=== PATIENT | female | born 1960 | race Two or more races ===

== ENCOUNTER → 2022-04-26 12:38 | Outpatient (CLI) | payer MEDICARE, MEDICAID, SELFPAY ==
--- NOTE | 2022-04-26 12:42 | US_ITS ---
FINAL REPORT CLINICAL HISTORY: post menopausal bleeding FINDINGS: Transvaginal sonographic images of the pelvis were obtained. The uterus measures 7.3 x 3.8 x 3.2 cm. The endometrium measures 14 mm, which is abnormally thickened. There is a small amount of endometrial fluid. There is a partially calcified uterine mass consistent with a fibroid measuring up to 1.5 cm. The right ovary measures 1.9 cm in length and left ovary measures 2.6 cm in length. Normal blood flow seen to the ovaries. Small follicles are present. There is no evidence of free fluid. IMPRESSION: Abnormal endometrial thickening could represent hyperplasia versus neoplasm. Small amount of endometrial fluid. Uterine fibroid. Reviewed, Interpreted and Dictated by Luis Eduardo Ba III, MD Transcribed by Duong Levine Authenticated and [facility]
== END ==
PROVIDERS: PCP Obstetrics & Gynecology; Visit Provider Obstetrics & Gynecology
DX: N95.0 Postmenopausal bleeding (principal)
CPT/HCPCS: 76830

== ENCOUNTER → 2022-07-03 10:13 | Outpatient (CLI) | payer MEDICARE, MEDICAID, SELFPAY ==
[2022-07-03 12:04] LABS: Basophils # 0.1 K/mm3 (0-0.2); Basophils % 2.1 % (0.1-2.0); Eosinophils # 0.2 K/mm3 (0.0-0.4); Eosinophils % 3.3 % (0.1-12.0); Hematocrit 37.1 % (37.0-47.0); Hemoglobin 12.3 g/dL (12.2-16.2); Lymphocytes # 2.8 K/mm3 (0.7-4.5); Lymphocytes % 50.5 % (10-50); Mean Corpuscular Hemoglobin 29.3 pg (27.0-31.2); Mean Corpuscular Volume 88.9 fl (81-99); Mean Platelet Volume 7.5 fl (7.4-10.4); Monocytes # 0.3 K/mm3 (0.1-1.0); Monocytes % 5.1 % (1.7-9.3); Neutrophils # 2.2 K/mm3 (1.8-7.8); Neutrophils % 39.1 % (37.0-80.0); Platelet Count 347 K/mm3 (142-424); Red Blood Count 4.18 M/mm3 (4.20-5.40); Red Cell Distribution Width 13.5 % (11.5-17.5); White Blood Count 5.6 K/mm3 (4.8-10.8)
[2022-07-03 12:07] LABS: MANUAL DIFFERENTIAL MANUAL DIFFERENTIAL (MANUAL DIFF)
[2022-07-03 12:36] LABS: Alanine Aminotransferase 40 U/L (12-78); Albumin Level 4.2 g/dl (3.5-5.0); Albumin/Globulin Ratio 1.5 (1.1-1.8); Alkaline Phosphatase 123 U/L (38-126); Anion Gap 9.9 mEq/L (5-15); Aspartate Amino Transferase 47 U/L (14-36); Bilirubin,Total 0.3 mg/dl (0.2-1.3); Blood Urea Nitrogen 15 mg/dl (7-17); Calcium 9.1 mg/dl (8.4-10.2); Carbon Dioxide 28 mmol/L (22.0-30.0); Chloride 105 mmol/L (98-107); Estimated Glomerular Filt Rate 63 ml/min (>60); GFR (African American) 77 ML/MIN (>60); Globulin 2.8 g/dL (1.3-3.2); Glucose 120 mg/dl (74-100); Potassium 3.9 mmoL/L (3.5-5.1); Sodium 139 mmol/L (136-145)
[2022-07-03 16:57] LABS: Eosinophils % 7 % (0-3); Lymphocytes % 55 % (10-50); Monocytes % 3 % (2-9); Neutrophils % 33 % (42-76); Platelet Estimate Normal; RBC Morphology Normal; Total Cells Counted 100
== END ==
PROVIDERS: Visit Provider Obstetrics & Gynecology
DX: N95.0 Postmenopausal bleeding (principal)
CPT/HCPCS: 36415; 80053; 85007; 85025

== ENCOUNTER 2022-07-06 06:19 | Day surgery (SDC) | payer MEDICARE, MEDICAID, SELFPAY ==
[2022-07-04 13:53] VITALS: BMI 24.5
[2022-07-06] VITALS (7 sets, daily range): BP systolic 69–167; BP diastolic 39–83; PULSE 77–85; RESP 15–18; TEMP 36.3–43; O2SAT 93–98; BMI 25.4
--- NOTE | 2022-07-06 07:20 | EXP.ANES.CKL ---
[facility] Disclaimer: The information contained in this section may have been updated after the patient was seen, as this information can be updated by other users. Medical History Carpal tunnel syndrome, bilateral Depression Fibromyalgia History of COVID-19 History of gastroesophageal reflux (GERD) Hypertension Post-menopausal bleeding Stress incontinence in female Thickened endometrium Surgical History History of back surgery History of carpal tunnel surgery Hx of shoulder surgery Family History Other Diabetes Hypertension Social History Smoking Status: Never smoker alcohol intake: never substance use type: denies use current occupational status: unemployed Travel in the last 8 weeks: None [facility] Anesthesia Checklist Patient Identification Patient Identification: Arm Band and Verbal (Name & ) Structural Data Admitted From: Home Planned Operative Procedure/s: Hyst/D & C Consent for Planned Operative Procedure(s) Verified: Yes NPO Status Verified Time NPO: 00:00 Chart Verification Results Verified: CBC and BMP Airway Assessment C-Spine Mobility Assessed: Yes TMJ Mobility Assessed: Yes Dentition: Good Dentition Neurological Assessment Level of Consciousness: Awake Hx Seizures: No Numbness or tingling in extremities: No Anesthesia Plan Anesthesia Risk discussed: Yes Anesthesia Plan: Verified ASA Class: II Anesthesia Type: MAC
--- NOTE | 2022-07-06 08:40 | EXP.OP.NOTE ---
Date of procedure: 07/06/22 Pre-op Diagnosis:: 1. Post menopausal bleeding 2. Thickened endometrium 3. Vaginal discharge Post-op Diagnosis:: 1. Post menopausal bleeding 2. Thickened endometrium 3. Vaginal discharge Procedure performed:: 1. Hysteroscopy, dilation and curettage 2. Myosure curettage Surgeon:: Olimpia Cisneros DO Cuff Setter Lockstitch(s):: N/a CAUSTIC STRENGTH INSPECTOR:: Veda Sorto Anesthesia: MAC Estimated blood loss (mL): 2 Clinical Note:: Ms Jacqueline Friedman is a 62 yo female who presents to [facility] for scheduled procedure. She is Slovak speaking and language line translation was used. She complains of vaginal discharge that is brown/richter with foul odor. This discharge has been present for about 4 months. Vaginal ID was negative for infection. She has not tried baking soda soaks. She went through menopause ~ 20 years ago. Pelvic ultrasound demonstrated endometrial thickness of 14 mm;?there is a small amount of endometrial fluid.? There is a partially calcified uterine mass consistent with a fibroid measuring up to 1.5 cm. Operative findings:: 1. On bimanual exam, uterus is normal size and shape, midposition 2. Bilateral tubal ostia not easily visualized secondary to white fluffy tissue on the anterior uterine wall and near tubal ostia Operative note:: Risks, benefits and alternatives were discussed with the patient. Risks include but are not limited to bleeding, infection, uterine perforation and VTE. Patient voiced understanding and agreed to proceed. She was wheeled back to the operating room and placed under general anesthesia without difficulty. She was placed in dorsal lithotomy position and prepped and draped in the normal sterile fashion. Straight catheter was used to drain the bladder. A bimanual exam was performed. A weighted Auvard was placed in the vaginal vault. Single tooth tenaculum was placed on anterior lip of the cervix. Uterus sounded to 9. Sequential Armond dilators were used to dilate the cervical os. Hysteroscope was inserted through the cervical canal and into the uterus. Pictures were taken. See findings above. Myosure device was inserted through the hysteroscope. Myosure curettage was performed to remove white fluffy tissue and sample endometrial cavity in a 360 degree fashion under direct visualization. Hysteroscope with Myosure was removed from the uterus and cervix. Medium size sharp curette was inserted through the cervix into the uterine cavity. The endometrial cavity was then curetted with a systemic [id number] movement of the curette so that all possible endometrium was sampled. All endometrial curettings will be sent to pathology for review. Instruments were removed from the vagina. Tenaculum site was noted to oozing. 2-0 Chromic suture was used to suture ligate the bleeding. Hemostasis was noted. Patient was awaken from anesthesia without difficulty. She was transported to recovery room in stable condition. Patient will be discharged home when awake and ambulating. She was given postop instructions as well as instructions to follow-up in the office in 2 weeks at which time pathology will be reviewed. Condition: stable Disposition: same day Specimens:: 1. Endometrial curettings Complications:: None
--- NOTE | 2022-07-06 09:17 | SUR.PHASEII ---
all discharge instructions went over with daughter and patient via mill feeder provided by [facility]. also provided patient with mauritanian, and cuban discharge instructions.
== END 2022-07-06 09:30 | disposition home or self-care (01) ==
PROVIDERS: PCP Nurse Practitioner Family; Visit Provider Obstetrics & Gynecology
DX: N95.0 Postmenopausal bleeding (principal); R93.89 Abnormal findings on diagnostic imaging of other specified body structures; N89.8 Other specified noninflammatory disorders of vagina; Z79.899 Other long term (current) drug therapy
CPT/HCPCS: 58558; 88305; 88342; 96374; J0131; J2405

== ENCOUNTER 2024-04-23 10:11 | Outpatient (CLI) | payer MEDICARE, MEDICAID, SELFPAY ==
--- NOTE | 2024-04-23 10:19 | XR_ITS ---
FINAL REPORT CLINICAL HISTORY: PAIN COMPARISON: None FINDINGS: LEFT FOOT: Three views of the left foot were obtained. There is a transverse fracture of the distal second metatarsal, with mild medial displacement of the distal fragment. There is callus formation at the fracture site, consistent with a subacute fracture. The joint spaces are intact. There is no soft tissue abnormality. IMPRESSION: Transverse fracture of the distal second metacarpal as described, with callus formation consistent with a subacute fracture. Reviewed, Interpreted and Dictated by Luis Eduardo Ba III, MD Transcribed by Sarah Cantu Authenticated and [facility]
== END 2024-04-23 23:59 | disposition home or self-care (01) ==
PROVIDERS: PCP Nurse Practitioner Family; Visit Provider Nurse Practitioner Family
DX: M79.672 Pain in left foot (principal)
CPT/HCPCS: 73630